=== PATIENT | male | born 1945 | race Caucasian/White ===

== ENCOUNTER 2016-12-21 13:49 | Emergency (ER) | payer OTHER ==
[~2016-12-21] VITALS: Ht 167.6 cm; Wt 75.0 kg
[2016-12-21 13:50] VITALS: BP 161/75; PULSE 79; RESP 15; TEMP 98.4; O2SAT 96
--- NOTE | 2016-12-21 13:54 | PD ---
Physical Exam Date Seen by Provider: Dec 21, 2016 Time Seen by Provider: 13:52 Data Data Last Documented VS Vital Signs Date Time Temp Pulse Resp B/P (MAP) Pulse Ox O2 Delivery O2 Flow Rate FiO2 12/21/16 13:50 98.4 79 15 161/75 (103) 96 MDM Supervised Visit with [facility]: No Narrative Course 71-year-old right-hand dominant male presents to the ED for evaluation of right arm laceration and pain. Patient states that he fell about 8 feet from a ladder about an hour before arrival today. Denies hitting his head or LOC. Vitals reviewed. Patient seen in triage. Awaiting bed placement. Amy Delacruz Dec 21, 2016 13:54
[2016-12-21] MEDS ORDERED: MORPHINE SULFATE 4 MG/ML INJ IV PUSH ONE (14:15)
[2016-12-21] MEDS ORDERED: ONDANSETRON HCL 4 MG/2 ML VIAL IV PUSH ONE (14:15)
[2016-12-21] MEDS ORDERED: LIDOCAINE HCL 1% 50 ML VIAL INFIL ONE (14:15)
[2016-12-21] MEDS ORDERED: TETANUS/DIPHTHERIA TOXOID ADULT 0.5 ML VIAL IM ONE (14:15)
--- NOTE | 2016-12-21 14:32 | PD ---
Physical Exam Date Seen by Provider: Dec 21, 2016 Narrative This patient presents with an injury to his right forearm. He fell off of a ladder and cut his arm on the metal rung of a ladder step. The date of his last tetanus shot is unknown. Data Data Last Documented VS Vital Signs Date Time Temp Pulse Resp B/P (MAP) Pulse Ox O2 Delivery O2 Flow Rate FiO2 12/21/16 13:50 98.4 79 15 161/75 (103) 96 Orders Orders Complete Blood Count With Diff (12/21/16 14:05) Basic Metabolic Panel (Bmp) (12/21/16 14:05) Prothrombin Time / Inr (Pt) (12/21/16 14:05) Act Partial Throm Time (Ptt) (12/21/16 14:05) Magnesium (Mg) (12/21/16 14:05) Chest, Single Ap (12/21/16 14:05) Iv Access Insert/Monitor (12/21/16 14:05) Wound Care (12/21/16 14:05) Cefazolin Inj (Ancef Inj) (12/21/16 14:15) Tetanus/Diphtheria Tox Adult (Tetanus/Di (12/21/16 14:15) Lidocaine 1% Inj (50 Ml) (Xylocaine 1% I (12/21/16 14:15) Forearm (2vws) (12/21/16 ) Morphine Inj (Morphine Inj) (12/21/16 14:15) Ondansetron Inj (Zofran Inj) (12/21/16 14:15) MDM Supervised Visit with [facility]: Yes Narrative Course I, Dr. Thakur, have reviewed the advance practice practitioner's documentation and am in agreement, met with the patient face to face, made the diagnosis, and the medical decision making was done by me. *My assessment and Findings: This patient has a deep laceration on the flexor surface of the right forearm. There is a visibly lacerated tendon in the wound. Pam Thakur MD Dec 21, 2016 14:32
--- NOTE | 2016-12-21 14:37 | RADRPT ---
EXAM DATE/TIME: 12/21/2016 14:21 [facility] COMPARISON: No previous studies available for comparison. INDICATIONS : Trauma. Patient fell off a ladder today. MEDICAL HISTORY : None. SURGICAL HISTORY : None. ENCOUNTER: Initial ACUITY: 1 day PAIN SCORE: 0/10 LOCATION: Bilateral chest FINDINGS: A single view of the chest demonstrates the lungs to be symmetrically aerated without evidence of mas s, infiltrate or effusion. The cardiomediastinal contours are unremarkable. Osseous structures are intact. CONCLUSION: Negative portable chest status post trauma. Mak Morataya MD on December 21, 2016 at 14:35 Board Certified Radiologist. This report was verified electronically.
--- NOTE | 2016-12-21 14:38 | RADRPT ---
EXAM DATE/TIME: 12/21/2016 14:23 [facility] COMPARISON: No previous studies available for comparison. INDICATIONS : Right arm laceration. Patient fell off a ladder today. MEDICAL HISTORY : None. SURGICAL HISTORY : None. ENCOUNTER: Initial ACUITY: 1 day PAIN SCORE: 5/10 LOCATION: Right forearm. FINDINGS: Two view examination of the right forearm demonstrates no evidence of fracture or dislocation. Bony mineralization is normal. Soft tissue defect in the mid forearm anteriorly. CONCLUSION: 1. No acute fracture or dislocation. No radiopaque foreign bodies. Mak Morataya MD on December 21, 2016 at 14:36 Board Certified Radiologist. This report was verified electronically.
--- NOTE | 2016-12-21 15:16 | PD ---
HPI Chief Complaint: Fall Time Seen by Provider: 14:05 Travel History International Travel<30 days: No Contact w/Intl Traveler<30days: No Traveled to known affect area: No History of Present Illness HPI 71-year-old male that presents to the ED for evaluation of fall from a ladder. Per patient he was about 6 feet above a ladder trying to cut some tree when he lost his footing and fell. Per patient he did not hurt anything other than his right arm as he fall he cut it with part of the stairs. Patient is able to move the fingers but he has difficulty with complete flexion as well as a lot of pain with extension of the middle and fourth digits. He has a lot of difficulty moving the middle finger as well as the fourth digit. He denies any numbness, tilling, weakness. He does not know his last tetanus booster. He has no medical problems and takes no medications. He has about an 8 cm laceration to the ventral aspect of the mid right forearm. Patient does appear to have what appears to be a tendon laceration as well as his skin and possible muscle laceration. He has no allergies to medication. No chest pain or shortness of breath. Denies any back or neck pain. Apparently ambulance showed up in the area and this possibly call trauma alert on this patient but he decided to come here by private vehicle instead. [facility] Social History Alcohol Use: No Tobacco Use: No Substance Use: No Allergies-Medications (Allergen,Severity, Reaction): Coded Allergies: No Known Allergies (Unverified , 12/21/16) Reported Meds & Prescriptions Reported Meds & Active Scripts Active Lortab (Hydrocodone-Acetaminophen) 5-325 Mg Tab 1 Tab PO Q6H PRN Bactrim DS (Sulfamethoxazole-Trimethoprim) 800-160 Mg Tab 1 Tab PO BID 10 Days Keflex (Cephalexin) 500 Mg Capsule 500 Mg PO Q8H 10 Days Review of Systems Except as stated in HPI: all other systems reviewed are Neg Physical Exam Narrative GENERAL: SKIN: Warm and dry. HEAD: Atraumatic. Normocephalic. EYES: Pupils equal and round. No scleral icterus. No injection or drainage. ENT: No nasal bleeding or discharge. Mucous membranes pink and moist. Tongue is midline. No uvula deviation. NECK: Trachea midline. No JVD. CARDIOVASCULAR: Regular rate and rhythm. No murmurs, S3, S4. RESPIRATORY: No accessory muscle use. Clear to auscultation. Breath sounds equal bilaterally. GASTROINTESTINAL: Abdomen soft, non-tender, nondistended. Hepatic and splenic margins not palpable. MUSCULOSKELETAL: Extremities without clubbing, cyanosis, or edema. No obvious deformities. Full range of motion of the upper and lower extremities bilaterally with exception of the right hand. Patient does have difficulty completely flexing the third and fourth digits. Patient appears to have weakness especially with making a fist. About 1 out of 2. Patient also has weakness on the second through fourth digits. Sensation intact. Good capillary refill. Patient has a Y-shaped laceration on the ventral aspect of the mid forearm. About 8 cm in length. Patient does appear to have what appears to be a laceration to the flexor tendon about half of it caught and possibly the muscle as well. Minimal bleeding noted. NEUROLOGICAL: Awake and alert. No obvious cranial nerve deficits. Motor grossly within normal limits. Five out of 5 muscle strength in the arms and legs. Normal speech. PSYCHIATRIC: Appropriate mood and affect; insight and judgment normal. Data Data Last Documented VS Vital Signs Date Time Temp Pulse Resp B/P (MAP) Pulse Ox O2 Delivery O2 Flow Rate FiO2 12/21/16 15:33 Room Air 12/21/16 13:50 98.4 79 15 161/75 (103) 96 Orders Orders Complete Blood Count With Diff (12/21/16 14:05) Basic Metabolic Panel (Bmp) (12/21/16 14:05) Prothrombin Time / Inr (Pt) (12/21/16 14:05) Act Partial Throm Time (Ptt) (12/21/16 14:05) Magnesium (Mg) (12/21/16 14:05) Chest, Single Ap (12/21/16 14:05) Iv Access Insert/Monitor (12/21/16 14:05) Wound Care (12/21/16 14:05) Cefazolin Inj (Ancef Inj) (12/21/16 14:15) Tetanus/Diphtheria Tox Adult (Tetanus/Di (12/21/16 14:15) Lidocaine 1% Inj (50 Ml) (Xylocaine 1% I (12/21/16 14:15) Forearm (2vws) (12/21/16 ) Morphine Inj (Morphine Inj) (12/21/16 14:15) Ondansetron Inj (Zofran Inj) (12/21/16 14:15) Radiology Film Requests (12/21/16 ) Splint Or Brace Apply/Monitor (12/21/16 15:39) Labs Laboratory Tests Test 12/21/16 15:00 White Blood Count 9.3 TH/MM3 Red Blood Count 4.82 MIL/MM3 Hemoglobin 16.2 GM/DL Hematocrit 47.0 % Mean Corpuscular Volume 97.5 FL Mean Corpuscular Hemoglobin 33.5 PG Mean Corpuscular Hemoglobin Concent 34.4 % Red Cell Distribution Width 13.2 % Platelet Count 186 TH/MM3 Mean Platelet Volume 9.0 FL Neutrophils (%) (Auto) 80.1 % Lymphocytes (%) (Auto) 10.3 % Monocytes (%) (Auto) 7.2 % Eosinophils (%) (Auto) 2.1 % Basophils (%) (Auto) 0.3 % Neutrophils # (Auto) 7.4 TH/MM3 Lymphocytes # (Auto) 0.9 TH/MM3 Monocytes # (Auto) 0.7 TH/MM3 Eosinophils # (Auto) 0.2 TH/MM3 Basophils # (Auto) 0.0 TH/MM3 CBC Comment DIFF FINAL Differential Comment Prothrombin Time 10.7 SEC Prothromb Time International Ratio 1.0 RATIO Activated Partial Thromboplast Time 27.0 SEC Blood Urea Nitrogen 12 MG/DL Creatinine 1.06 MG/DL Random Glucose 92 MG/DL Calcium Level 9.3 MG/DL Magnesium Level 2.2 MG/DL Sodium Level 140 MEQ/L Potassium Level 4.4 MEQ/L Chloride Level 108 MEQ/L Carbon Dioxide Level 25.6 MEQ/L Anion Gap 6 MEQ/L Estimat Glomerular Filtration Rate 68 ML/MIN [facility] Medical Decision Making Medical Screen Exam Complete: Yes Emergency Medical Condition: Yes Medical Record Reviewed: Yes Interpretation(s) xray of forearm negative Chest x-ray negative. CBC & BMP Diagram 12/21/16 15:00 Calcium Level 9.3, Magnesium Level 2.2 Differential Diagnosis Laceration versus abrasion versus tendon laceration versus fracture versus trauma Narrative Course 71-year-old male that presents to the ED for evaluation of injury to his right forearm. Patient was properly examined and was found to have laceration of the tendon. Otherwise unremarkable. Patient does have some weakness to the right hand. I had my attending Dr. Thakur evaluated the patient with me and agrees with plan. We discussed the case with Dr. Colunga from [facility] who states that he does not do tendon repairs and recommends hand surgery. Unfortunately we do not have a hand surgeon personnel manager so a call was placed by my attending to the [facility] in [place] at the patient's request and we were able to get in contact with a surgeon Dr Gamble who agreed to see the patient on Friday. Wants us to put the patient in a splint and Antibiotics. My attending spoke with him. Please refer to her note. Patient will be given prescription for Lortab, Bactrim and Keflex. Patient was told all the results and the plan and he agrees with this plan. She understands that he needs to follow with Dr. Gamble on Friday. All questions were answered to the best of my ability. See ED worsening symptoms. Follow with PCP. I was asked to repair laceration losely Procedures Procedure Narrative LACERATION LOCATION: right forearm LENGTH: 8 cm Y shaped NUMBER OF STITCHES/MARICARMEN: 15 sutures REPAIR: The area of the laceration was prepped with Betadine and sterilely draped. The laceration was infiltrated with 1% Xylocaine. The wound was copiously irrigated and explored without evidence of foreign body, tendon injury or neurovascular injury. The wound was closed using 3-0 Prolene. This was a 1 layer repair. A sterile dressing was applied. The patient was advised to keep the dressing clean and dry. Patient tolerated the procedure well. Diagnosis Primary Impression: Tendon laceration Additional Impression: Laceration of forearm Qualified Codes: S51.811A - Laceration without foreign body of right forearm, initial encounter Patient Instructions: General Instructions, Narcotic given in the ED Additional Instructions: Follow-up with Dr Jean-Claude Gamble. on friday. He will put you on his office schedule for friday and is expecting your call on friday. Do not take out splint until seen by him. Do not drink or drive while taking the pain med. See ED if worst. Follow up with PCP. Med/Other Pt SpecificInfo: Prescription(s) given, Wound Care Scripts Hydrocodone-Acetaminophen (Lortab) 5-325 Mg Tab 1 TAB PO Q6H Y for PAIN, #15 TAB 0 Refills Prov: Pam Thakur MD 12/21/16 Sulfamethoxazole-Trimethoprim (Bactrim DS) 800-160 Mg Tab 1 TAB PO BID for Infection for 10 Days, #20 TAB 0 Refills Prov: Pam Thakur MD 12/21/16 Cephalexin (Keflex) 500 Mg Capsule 500 MG PO Q8H for Infection for 10 Days, #30 CAP 0 Refills Prov: Pam Thakur MD 12/21/16 Disposition: 01 DISCHARGE HOME Condition: Stable Wilbert Eubanks Dec 21, 2016 15:16
[2016-12-21 15:34] LABS: AUTOMATED NEUTROPHIL # 7.4 TH/MM3 (1.8-7.7); BASOPHIL % 0.3 % (0.0-2.0); EOSINOPHIL # 0.2 TH/MM3 (0-0.4); EOSINOPHIL % 2.1 % (0.0-4.0); HEMO FLAGS DIFF FINAL; LYMPH % 10.3 % (9.0-44.0); LYMPHOCYTE # 0.9 TH/MM3 (1.0-4.8); MEAN CELL VOLUME 97.5 FL (80.0-100.0); MEAN CORPUSCULAR HEMOGLOBIN 33.5 PG (27.0-34.0); MEAN CORPUSCULAR HGB CONC 34.4 % (32.0-36.0); MONO % 7.2 % (0.0-8.0); NEUT % 80.1 % (16.0-70.0); PLATELET COUNT 186 TH/MM3 (150-450); RED BLOOD COUNT 4.82 MIL/MM3 (4.50-5.90); RED CELL DISTRIBUTION WIDTH 13.2 % (11.6-17.2); WHITE BLOOD COUNT 9.3 TH/MM3 (4.0-11.0)
[2016-12-21 16:00] LABS: PROTHROMBIN TIME - PATIENT 10.7 SEC (9.8-11.6)
[2016-12-21 16:05] LABS: BICARBONATE 25.6 MEQ/L (21.0-32.0); MAGNESIUM 2.2 MG/DL (1.5-2.5); POTASSIUM 4.4 MEQ/L (3.5-5.1)
[2016-12-21] MEDS ORDERED: HYDR-3533 PO ×2 (16:40→17:51)
[2016-12-21] MEDS ORDERED: BACT800T5 PO ×2 (16:40→17:51)
[2016-12-21] MEDS ORDERED: CEPH-460 PO ×2 (16:40→17:51)
== END 2016-12-21 18:54 | disposition home or self-care (01) ==
LOC: NEPC 13:49
DX: S56.221A Laceration of other flexor muscle, fascia and tendon at forearm level, right arm, initial encounter (principal); S51.811A Laceration without foreign body of right forearm, initial encounter; M79.631 Pain in right forearm; Z23 Encounter for immunization; Z79.899 Other long term (current) drug therapy; W11.XXXA Fall on and from ladder, initial encounter; Y93.H2 Activity, gardening and landscaping
CPT/HCPCS: 12004; 29125; 71010; 73090; 80048; 83735; 85025; 85610; 85730; 90471; 90714; 96374; 96375; 99284; J0690; J2270; J2405